=== PATIENT | male | born 1995 | race Caucasian/White ===

== ENCOUNTER 2017-08-25 18:57 | Emergency (ER) | payer BC ==
[~2017-08-25] VITALS: Ht 180.3 cm; Wt 75.3 kg
[2017-08-25 19:30] VITALS: Ht 180.3 cm; Wt 75.3 kg
[2017-08-25] MEDS ORDERED: VORT1TAB PO (20:00)
[2017-08-25] MEDS ORDERED: AMPH30TA2 PO (20:01)
--- NOTE | 2017-08-25 20:36 | EMERGENCY ROOM VISIT NOTE ---
ED Visit Note First contact with patient: 19:40 CHIEF COMPLAINT: Head injury, difficulty focusing HISTORY OF PRESENT ILLNESS: This 21-year-old male patient presented to the emergency department 4 days after receiving a head injury. The patient states last , he and his friends decided to wear lacrosse helmets and hit each other on the head. He states he was hit 3 times in the left hoahaoism, and after the last hit, he lacked out and saw purple stars. He denies any loss of consciousness, but states at that time he was nauseated with one episode of vomiting. The next day, he states he was feeling better, and continued to feel better through Friday. He states Friday and Friday he did go out to drink, on on Friday said he had an alcoholic beverage that had Xanax in it. On Friday morning, the patient awoke not feeling well. He did go to [employer], who diagnosed him with a concussion. They gave him a note for school, but he states they did not instruct him on any sort of follow-up. He states when he awoke today, he continues to not feel better, and still is having difficulty focusing well staring at his computer screen. He contacted his mother, who called the [facility] nurse real estate operations manager, who asked several questions, and advised the patient to come to the emergency department for possible imaging. There has been no loss of consciousness. There has been no vomiting since the first day. The patient complains of an ongoing headache, difficulty focusing, and shaky vision when focusing on his computer screen for long periods of time. The patient denies confussion, blurry vision, nausea, vomiting, dizziness, loss of balance, difficulty with ambulation, weakness, numbness, or tingling. The headache has been intermittent and is not the worst headache of the patient's life. He denies any recent illness or fever. The patient complains of no neck pain. The patient has taken nothing for the pain. The patient rates the pain as 5/10 and "like my head is smashed in". The patient denies bowel or bladder dysfunction. The patient denies any other injuries. REVIEW OF SYSTEMS: A 10 system review of systems was performed with positives and pertinent negatives listed in the history of present illness. All other systems were reviewed and are negative. ALLERGIES: None MEDICATIONS: None PMH: None. The patient denies previous head injuries/concussions, but the patient's mother does report history of concussion SOCIAL HISTORY: The patient is a [employer] student. He lives locally with his roommates. PHYSICAL EXAM: Vital Signs: Reviewed Nurse's notes, vital signs stable. GENERAL : This is a 21 year old white male, in no acute distress, well-developed, well- nourished. NEURO: The patient is alert, oriented to person place and time, and coherent. Normal mini mental status exam. Negative Romberg and pronator drift. Cerebellar function intact. The patient is mildly off balance with heel to toe walk initially after standing up suddenly out of bed, however this improves as he walks across the room. HEAD: Normocephalic, atraumatic. No tenderness on palpation. EYES: Pupils are equal round and reactive to light and accommodation. EOMs are full and optic discs and fundi are normal. There is no swelling or discoloration of the tissue surrounding the eyes. EARS: External auditory canals clear without blood. NOSE: Patent without tenderness. No septal hematoma. FACE: No facial bone tenderness. NECK: Supple. There is no cervical spine tenderness. The patient does not have tenderness with movement of the neck. RADIOLOGY: HEAD WITHOUT CONTRAST (CT) CLINICAL HISTORY: 21 years-old Male with head injury, dizziness. Acute head injury with dizziness TECHNIQUE: Multiple axial CT images of the head were obtained without contrast. A dose lowering technique was utilized adhering to the principles of ALARA. CT DOSE: 537.48 mGy.cm COMPARISON: None. FINDINGS: No acute intracranial hemorrhage, midline shift, intracranial mass, hydrocephalus, territorial ischemia or abnormal extra-axial collection. The calvarium is intact. The mastoid air cells, and middle ear cavities are clear. Mild mucosal thickening of the ethmoid air cells. Left karen bullosa. IMPRESSION: No acute intracranial abnormality or calvarial fracture. ED COURSE: I examined the patient. The patient requested that I speak with his mother, so I contacted her via phone (Lisaranulfo, ). She states she is concerned regarding the symptoms and states that because the [employer] nurse recommended further evaluation, and because she is not here with her son, that she would like the scan completed. She did not feel that the radiation exposure is significant, as she gets frequent MRIs due to MS. I advised her that MRI vs. CT scan are in fact different tests, and there is much more significant risk associated with CT scan. She states she still feels that based on the [employer] nurse recommendation, despite the overall normal neuro examination, she would still like the patient to have the scan. CT scan performed and reviewed by myself and radiologist as above. Discharge instructions reviewed. The patient was discharged home in good condition ambulatory. I attest that I have personally reviewed the patient's current medication list. Patient was found to have normal blood pressure on screening and does not require follow-up. Etiologies such as concussion/closed head injury, migraine, tumor, headache, sinus thrombosis, temporal arteritis, sinusitis, CVA, ICH, SAH, infection, as well as others were entertained. DIAGNOSIS: concussion Current/Historical Medications Scheduled Vortioxetine HBr (Trintellix), 5 MG PO DAILY Scheduled PRN Amphetamine-Dextroamphetamine 30MG (Adderall 30MG), 15 MG PO BID PRN for CONCENTRATION Allergies Coded Allergies: No Known Allergies (Unverified , 08/25/17) Vital Signs Date Time Temp Pulse Resp B/P (MAP) Pulse Ox O2 Delivery O2 Flow Rate FiO2 08/25/17 19:30 36.7 82 18 152/83 96 Room Air Departure Information Impression Primary Impression: Concussion Dispostion Home / Self-Care Condition GOOD Referrals Libby Ye M.D. (PCP) [facility] Patient Instructions ED Concussion, My [facility] Additional Instructions You have been treated in the Emergency Department for a Closed Head Injury. CT Scan of your head/brain demonstrated no acute bleeding or other abnormalities. This does not completely rule out the risk for future damage to the brain. For pain control, you can use the following [id number] medicines (if >12 yo): Ibuprofen(Motrin, Advil) may be used for fever or pain. Use 600mg every six hours as needed. Take with food. Avoid using more than 2400mg in a 24 hour period. Do not use 2400mg per day for more than three consecutive days without physician direction. Prolonged inappropriate use can lead to stomach upset or ulcers. (AND/OR) Acetaminophen(Tylenol) may be used for fever or pain. Use 1000mg every six hours as needed. Avoid using more than 3000mg in a 24 hour period. *You may alternate these medications every 3-4 hours for increased pain control. You should relax in a quiet, dark place for the rest of the day. Avoid any possible triggers including: cigarette smoke, caffeine, nicotine, chocolate, wine, beer, loud noises or music, or bright lights. You should avoid excessive time looking at screens such as cell phones, tablets , television, computers, or video games. You should schedule a follow-up appointment in 1-2 days with [facility] for further evaluation and treatment of your Headache/symptoms. You should NOT return to athletic play until reevaluated by your Warehouse Representative/S. You should fully comply with their standard protocol regarding head injuries. Your Warehouse Representative OR Primary Care Provider will have the final say in your return to athletic play. This timeframe should be AT LEAST 1 week AFTER the date of last symptoms experienced! This is ESSENTIAL to allow for adequate brain healing time and for reduced risk of re-injury. You should follow-up with the concussion clinic. They are located at [address] [place] [address], [address]. You may call them to schedule an appointment at . There are open Friday to Friday from 8:30 AM to 5:00 PM. Return to the Emergency Department if your current symptoms worsen despite treatment course outlined above, or if you develop any of the following symptoms : intractable pain despite aforementioned treatment course, visual disturbances , loss of vision, unilateral weakness or facial drooping, slurring of speech, loss of coordination, or loss of consciousness. Problem Qualifiers Primary Impression: Concussion Encounter type: subsequent encounter Loss of consciousness presence/duration : without LOC Qualified Codes: S06.0X0D - Concussion without loss of consciousness, subsequent encounter
--- NOTE | 2017-08-25 20:40 | DIAGNOSTIC IMAGING REPORT ---
HEAD WITHOUT CONTRAST (CT) CLINICAL HISTORY: 21 years-old Male with head injury, dizziness. Acute head injury with dizziness TECHNIQUE: Multiple axial CT images of the head were obtained without contrast. A dose lowering technique was utilized adhering to the principles of ALARA. CT DOSE: 537.48 mGy.cm COMPARISON: None. FINDINGS: No acute intracranial hemorrhage, midline shift, intracranial mass, hydrocephalus, territorial ischemia or abnormal extra-axial collection. The calvarium is intact. The mastoid air cells, and middle ear cavities are clear. Mild mucosal thickening of the ethmoid air cells. Left karen bullosa. IMPRESSION: No acute intracranial abnormality or calvarial fracture. The above report was generated using voice recognition software. It may contain grammatical, syntax or spelling errors. Electronically signed by: Kumar Hernandez M.D. 08/25/2017 8:39 PM Dictated Date/Time: 08/25/2017 8:34 PM
[2017-08-25 21:05] VITALS: BP 125/72; PULSE 82; TEMP 36.7; O2SAT 96
== END 2017-08-25 21:05 | disposition home or self-care (01) ==
LOC: C.EDB 18:58 → C.EDD 21:05
DX: S06.0X0A Concussion without loss of consciousness, initial encounter (principal); W51.XXXA Accidental striking against or bumped into by another person, initial encounter; Y93.83 Activity, rough housing and horseplay